=== PATIENT | male | born 1985 | race Two or more races ===

== ENCOUNTER 2017-07-04 15:51 | Emergency (ER) | payer BC, OTHER ==
[~2017-07-04] VITALS: Ht 182.9 cm; Wt 95.3 kg
[2017-07-04] MEDS ORDERED: LIDOCAINE 2%HCL (LOCAL ANESTH.) INJ 20ML MDV ONE (17:28)
[2017-07-04] MEDS ORDERED: NALBUPHINE HCL 10 MG/1ml INJECTION IV ONE (17:30)
[2017-07-04] MEDS ORDERED: PROMETHAZINE HCL 25 MG/ML 1ML IV ONE (17:30)
[2017-07-04] MEDS ORDERED: BACITRACIN TOP OINT 1 UD PKG TOP ONE (17:45)
[2017-07-04] MEDS ORDERED: LIDOCAINE 2%HCL (LOCAL ANESTH.) INJ 20ML MDV ID ONE (17:45)
[2017-07-04] MEDS ORDERED: cefTRIAXone 1GM/10ml IVPUSH 10 ML IV ONE (18:45)
[2017-07-04] MEDS ORDERED: TETANUS-DIPTH-ACEL PERTUSSIS 0.5ML SYRG IM ONE (18:45)
[2017-07-04] MEDS ORDERED: NEOMYCIN-BACITRACIN-POLYM 15GM TOP OINT TOP ONE (19:40)
[2017-07-04 20:21] VITALS: BP 125/78
[2017-07-04] MEDS ORDERED: ONDANSETRON HCL 4 MG/2 ML VIAL ONE (21:13)
[2017-07-04] MEDS ORDERED: ONDANSETRON HCL 4 MG/2 ML VIAL IV ONE (21:30)
== END 2017-07-04 21:18 | disposition home or self-care (01) ==
LOC: ER 15:53
DX: S91.011A Laceration without foreign body, right ankle, initial encounter (principal); S00.83XA Contusion of other part of head, initial encounter; S00.12XA Contusion of left eyelid and periocular area, initial encounter; V29.49XA Motorcycle driver injured in collision with other motor vehicles in traffic accident, initial encounter; Y93.89 Activity, other specified; Y99.8 Other external cause status; Y92.410 Unspecified street and highway as the place of occurrence of the external cause
CPT/HCPCS: 12034; 70450; 72125; 73502; 73600; 73610; 90471; 90715; 96374; 96375; 99285; J2300; J2405; J2550

== ENCOUNTER 2018-03-12 11:20 | Inpatient (IN) | payer BC ==
[2018-03-11 13:49] LABS: Basophils # (auto) 0 uL; Basophils % (auto) 0.6 % (0.0-2.0); Eosinophils # (auto) 0.1 uL; Eosinophils % (auto) 0.9 % (0.0-7.0); Hematocrit 44.5 % (41.0-53.0); Hemoglobin 15.2 g/dL (13.5-17.5); Lymphocytes # (auto) 1.1 uL; Lymphocytes % (auto) 16.1 % (10.0-50.0); Mean Corpuscular Hemoglobin 30.3 pg (28.0-32.0); Mean Corpuscular Hgb Conc. 34.2 g/dL (32.0-36.0); Mean Corpuscular Volume 88.6 fL (80.0-100.0); Monocytes # (auto) 0.6 uL; Neutrophils # (auto) 4.9 uL; Neutrophils % (auto) 73.4 % (37.0-80.0); Platelet Count (auto) 308 10^3/uL (140-450); Red Blood Cells 5.03 10^6/uL (4.5-5.90); Red Cell Distribution Width 12.2 % (11.8-14.3); White Blood Cell 6.6 10^3/uL (4.4-10.8)
[2018-03-11 13:59] LABS: Urine Bacteria FEW /hpf (None Seen); Urine Blood Negative /uL (Negative); Urine Mucus FEW (None Seen); Urine Specific Gravity 1.016 (1.001-1.035); Urine Sperm PRESENT /hpf (None Seen); Urine WBC 1 /hpf (0 - 3)
[2018-03-11 14:02] LABS: Albumin 4.1 g/dL (3.4-5.0); BUN/Creatinine Ratio 10.9; Potassium 4.1 mmol/L (3.5-5.1)
[2018-03-11 14:03] LABS: INR 1.13 (0.9-1.15); Partial Thromboplastin Time 33.1 sec (23.78-33.04)
[2018-03-11 14:05] LABS: Bilirubin, Total 1.1 mg/dL (0.2-1.0); Total Protein 8.3 g/dL (6.4-8.2)
[~2018-03-12] VITALS: Ht 182.9 cm; Wt 99.2 kg
[~2018-03-12 11:20] MED LIST: HYDR-531 PO
[2018-03-12] MEDS ORDERED: SUCCINYLCHOLINE CHLORIDE 20 MG/ML 10ML VIAL IV ONE (12:35)
[2018-03-12] MEDS ORDERED: LIDOCAINE 1% INJ PF 5ML AMP ONE (12:35)
[2018-03-12] MEDS ORDERED: MIDAZOLAM HCL 1MG/1ML-2 ML VIAL ONE (12:36)
[2018-03-12] MEDS ORDERED: LIDOCAINE 1% HCL (LOCAL ANESTH.) INJ 20ML MDV ONE (12:38)
[2018-03-12] MEDS ORDERED: PROPOFOL 10 MG/ML 20 ML IV ONE (12:38)
[2018-03-12] MEDS ORDERED: METOCLOPRAMIDE HCL 5MG/ml INJ 2ml VIAL ONE (12:39)
[2018-03-12] MEDS ORDERED: fentaNYL CITRATE 100 MCG/2 ML VL ONE ×2 (12:47→14:25)
[2018-03-12] MEDS ORDERED: diphenhdrAMINE HCL 50 MG/1 ML VL ONE (12:47)
[2018-03-12] MEDS ORDERED: SODIUM CHLORIDE LOCK 10 ML ONE (12:59)
[2018-03-12] MEDS ORDERED: HYDROmorphone HCL 2 MG/ML VL IV PRN (13:00)
[2018-03-12] MEDS ORDERED: ONDANSETRON HCL 4 MG/2 ML VIAL IV ONE (13:00)
[2018-03-12] MEDS ORDERED: NALOXONE HCL 0.4 MG/ML VIAL IV PRN (13:00)
[2018-03-12] MEDS ORDERED: ceFAZolin 1GM VL ONE ×2 (13:00)
[2018-03-12] MEDS ORDERED: KETOROLAC TROMETH 30 MG/ML 1ML VIAL ONE (13:12)
[2018-03-12] MEDS ORDERED: MEPERIDINE HCL (50 MG/ML) 1 ML VIAL ONE (13:15)
[2018-03-12] MEDS ORDERED: MEPERIDINE HCL (25 MG/ML) 1ML VIAL IV ONE (14:50)
[2018-03-12] MEDS ORDERED: MEPERIDINE HCL (25 MG/ML) 1ML VIAL ONE (14:53)
[2018-03-12] MEDS: HYDROmorphone HCL 2 MG/ML VL IV PRN ×4 (15:35→16:05)
[2018-03-12 16:40] VITALS: BP 125/74
[2018-03-12] MEDS ORDERED: NITROGLYCERIN 0.4 MG SL TAB SL PRN (17:00)
[2018-03-12] MEDS ORDERED: MORPHINE SULFATE 4 MG/ML SYR/VIAL IV PRN (17:00)
[2018-03-12 17:25] VITALS: BP 125/74
[2018-03-12] MEDS: ceFAZolin 1GM/50ML 50 ML IV SCH ×2 (18:41→23:06)
[2018-03-12] MEDS: LACTATED RINGER'S 1,000 ML IV SCH ×2 (18:42→23:13)
[2018-03-12 20:00] VITALS: BP 129/68
[2018-03-12] MEDS: HYDROcodone-ACET 5/325MG TAB PO PRN (20:03)
[2018-03-12 22:00] VITALS: BP 129/68
[2018-03-13] MEDS: HYDROmorphone HCL 2 MG/ML VL IV PRN ×3 (02:22→08:04)
[2018-03-13 05:00] VITALS: BP 131/68
[2018-03-13] MEDS: ceFAZolin 1GM/50ML 50 ML IV SCH ×3 (05:17→17:02)
[2018-03-13 08:26] VITALS: BP 140/86
[2018-03-13] MEDS: ACETAMINOPHEN 325 MG TAB PO PRN ×2 (10:22→16:10)
[2018-03-13 12:41] VITALS: BP 140/80
[2018-03-13 16:34] VITALS: BP 117/75
[2018-03-13] MEDS: HYDROcodone-ACET 5/325MG TAB PO PRN ×2 (17:01→21:19)
[2018-03-13 20:00] VITALS: BP 121/76
[2018-03-13 21:40] VITALS: BP 121/76
[2018-03-14] MEDS: ceFAZolin 1GM/50ML 50 ML IV SCH ×3 (00:15→12:43)
[2018-03-14] MEDS: HYDROcodone-ACET 5/325MG TAB PO PRN ×2 (03:36→14:13)
[2018-03-14 04:49] VITALS: BP 120/67
[2018-03-14] MEDS: LACTATED RINGER'S 1,000 ML IV SCH (06:30)
[2018-03-14 09:00] VITALS: BP 113/82
[2018-03-14 12:57] VITALS: BP 127/72
[2018-03-14 15:05] VITALS: BP 127/27
== END 2018-03-14 16:35 | disposition home or self-care (01) | DRG 494 ==
LOC: SUR 11:20 → CENTRAL 11:21
PROVIDERS: ADMIT Orthopaedic Surgery; ATTEND Orthopaedic Surgery
PROC: 0KNT0ZZ Release Left Lower Leg Muscle, Open Approach (ICD-10-PCS; 2018-03-12)
PROC: 0MQR0ZZ Repair Left Ankle Bursa and Ligament, Open Approach (ICD-10-PCS; 2018-03-12)
PROC: 0QUH0JZ Supplement Left Tibia with Synthetic Substitute, Open Approach (ICD-10-PCS; 2018-03-12)
PROC: 0QSH04Z Reposition Left Tibia with Internal Fixation Device, Open Approach (ICD-10-PCS; principal; 2018-03-12 12:32)
DX: S82.292A Other fracture of shaft of left tibia, initial encounter for closed fracture (principal); S82.492A Other fracture of shaft of left fibula, initial encounter for closed fracture; S93.432A Sprain of tibiofibular ligament of left ankle, initial encounter; X58.XXXA Exposure to other specified factors, initial encounter; Y93.89 Activity, other specified; Y92.89 Other specified places as the place of occurrence of the external cause; Y99.8 Other external cause status
CPT/HCPCS: 36415; 73590; 76001; 80053; 81001; 85025; 85610; 85730; G0378; J0330; J0690; J1885; J2001; J2250; J2704